=== PATIENT | female | born 1980 | race Caucasian/White ===

== ENCOUNTER 2023-11-06 14:10 | Emergency (ER) | payer OTHER, SELFPAY ==
[2023-11-06 14:12] VITALS: BP 143/99
--- NOTE | 2023-11-06 15:49 | ED.PDOC.TRB ---
ED Provider Triage
-
Patient seen by provider in Triage?: Seen in Triage
A medical screening examination has been initiated by a qualified medical provider. Based on the assessment performed at this time, it has been determined that an emergent medical condition may exist and the patient has been informed that further
medical evaluation and possible additional diagnostic testing may be needed.
This is a medical evaluation conducted in person to initiate diagnostic evaluation and provide initial therapeutics. Please see further documentation by the treating clinician.
October 05 some degree of ongoing symptoms. Diffuse pressure MILIAN. Slurring speech off/on. Vision changes for a few days intermittently. Today she had abrupt worsening of symptoms roughly 6 hours prior to arrival to the emergency department. She
claims it has very severe worsened over a few minutes. Mainly to the left side described as throbbing and aching. She had change in vision room spinning dizziness and weakness to the left arm. No meds today.
Here on examination patient does have some left-sided pronator drift. Otherwise no focality to the neurologic examination. Considering patient's multitude of symptoms plan for CT CT angiogram for further assessment pending additional assessment.
[2023-11-06] MEDS: NSS 1000 IV (16:08)
[2023-11-06] MEDS: REGLAN 10 MG IV (16:08)
[2023-11-06] MEDS: BENADRYL 25 MG IV (16:08)
[2023-11-06] MEDS: DECADRON 10 MG IV (16:09)
[2023-11-06 16:25] LABS: % Basophils 0.7 % (0-2); % Eosinophils 2.1 % (0-6); % Immature Granulocytes 0.4 % (0-0.5); % Lymphocytes 27.1 % (20.5-51.1); % Monocytes 8.5 % (1.7-9.3); % Neutrophils 61.2 % (42.2-75.2); Absolute Basophils 0.1 10^3/uL (0-0.2); Absolute Eosinophils 0.1 10^3/uL (0-0.7); Absolute Lymphocytes 1.8 10^3/uL (1.2-3.4); Absolute Monocytes 0.6 10^3/uL (0.1-0.6); Absolute Neutrophils 4.1 10^3/uL (1.4-6.5); Hemoglobin 13.7 g/dL (12.0-16.0); Mean Corp Hgb Conc. 34.3 g/dL (33.0-37.0); Mean Corpuscular Hgb 29.8 pg (27.0-31.0); Mean Platelet Volume 9.8 fL (7.4-10.4); Nucleated Red Blood Cells % 0 %; Platelet Count 261 10^3/uL (130-400); White Blood Cell Count 6.7 10^3/uL (4.8-10.8)
[2023-11-06 16:42] LABS: Erythrocyte Sed Rate 13 mm/hour (0-20)
[2023-11-06 16:49] LABS: ALT (SGPT) 38 U/L (0-35); AST (SGOT) 34 U/L (14-36); Albumin 4.7 g/dl (3.5-5.0); Alkaline Phosphatase 110 U/L (38-126); Blood Urea Nitrogen 10 mg/dl (7-17); Calcium 9.7 mg/dl (8.4-10.2); Carbon Dioxide 26 mmol/L (22-30); Chloride 104 mmol/L (98-107); Glucose 86 mg/dl (70-99); Potassium 3.9 mmol/L (3.5-5.1); Sodium 139 mmol/L (135-145); Total Bilirubin 0.6 mg/dl (0.2-1.3); Total Protein 7.6 g/dl (6.3-8.2); eGFR > 60.00
[2023-11-06 17:25] LABS: HCG, Serum Qualitative Screen Negative
[2023-11-06 17:38] VITALS: BP 138/79
[2023-11-06 18:20] VITALS: BMI 35.6
--- NOTE | 2023-11-06 20:13 | ED.GENMED ---
History of Present Illness
General
Chief Complaint: Headache
Time Seen by Provider: 11/06/23 18:38
History of Present Illness
History of Present Illness:
43-year-old female presents to the emergency department for evaluation of acute onset headache. She is a history of migraines however today symptoms feel atypical for her. She also reports speech difficulty and blurry vision that is not normal for
her. She has had frequent headaches for the past month. She did not take her sumatriptan today as scheduled. She was seen in triage and a CT angiogram of the head and neck was obtained due to the atypical nature of her symptoms
Past History
Past History
ED Past Medical History: Other (Exercise-induced asthma, bronchitis, migraines, endometriosis, chronic back pain)
ED Past Surgical History: Orthopedic
Social History
Tobacco: Non-smoker
Alcohol: None
Personal:
Living: with family
Employment: Not employed
Review of Systems
Review of Systems
Allergies reviewed?: Yes
All Other Systems: ROS reviewed and negative except as documented in HPI and ROS
Phy Exam
Physical Exam
Physical Exam:
GEN: Well appearing, NAD, WDWN
HEENT: Oral mucosa moist, no scleral icterus
Cardiac: Regular rate
Lung: No respiratory distress, no tachypnea
MSK: No gross deformity or injuries
Skin: Good color, no pallor or jaundice, no rashes
Neuro: AO x3, moves all extremities freely, cranial nerves II through XII grossly intact
Psych: Calm, cooperative
Course
Orders/Labs/Results
Orders:
Orders
11/06/23 15:50
0.9% Sodium Chloride 1000 ml [Nss] 1,000 ml IV BOLUS
Dexamethasone Sod Phosphate [Decadron] 10 mg IV NOW STA
Diphenhydramine [Benadryl] 25 mg IV NOW STA
Metoclopramide [Reglan] 10 mg IV NOW STA
11/06/23 15:55
CT Head & Neck Angio W/wo IV Urgent
Comment:
Reason For Exam: dizzy MILIAN, left arm weaskness, neck pain
11/06/23 16:03
Complete Blood Count/With Diff Urgent
Comprehensive Metabolic Panel Urgent
Erythrocyte Sed Rate Urgent
HCG, Serum Qualitative Screen Urgent
Comment: ADDON
11/06/23 16:39
Add On- LAB Urgent
Tests Added?: hcg qual
11/06/23 20:14
Ketorolac [Toradol] 30 mg IM NOW STA
11/06/23 20:15
Ketorolac [Toradol] 15 mg IV NOW STA
Abnormal Lab Results
11/06/23
16:03
ALT 38 H U/L
(0-35)
11/06/23 16:03
11/06/23 16:03
Vital Signs
Initial and Last Documented VS:
Initial Vital Signs
Temp Pulse Resp BP Pulse Ox
98.1 F 91 18 143/99 98
11/06/23 14:12 11/06/23 14:12 11/06/23 14:12 11/06/23 14:12 11/06/23 14:12
Last Documented Vital Signs
Temp Pulse Resp BP Pulse Ox
98.0 F 89 18 138/79 97
11/06/23 17:38 11/06/23 17:38 11/06/23 17:38 11/06/23 17:38 11/06/23 17:38
MDM/Problems Addressed
MDM/Problems Addressed:
On my evaluation the patient's headache is nearly resolved. CT of the head and neck shows no evidence for vascular pathology causing her symptoms. Likely atypical migraine, given IV Toradol for additional pain relief and discussed supportive care
at home
*Critical Care Note
Total Time (30-74mins, 75-104mins- exclusive of procedures): Not Applicable
ED Attending Note
-
Portions of this chart may have been created with voice recognition software.� Occasional wrong word or��sound alike� substitutions may have occurred due to the inherent limitations of voice recognition software.
Discharge Plan
Departure
Patient Disposition: Home (Routine Discharge)
Date of Disposition: 11/06/23
Time of Disposition: 20:14
Patient with high blood pressure during this ER visit?: No
Discharge Problem:
Atypical migraine
Instructions: Migraines (DC)
Prescriptions:
No Action
ondansetron 4 MG tablet,disintegrating
4 mg PO TIDPRN PRN (Reason: nausea) Qty: 10 1RF
prednisone 10 MG tablets,dose pack
10 mg PO DAILY Qty: 1 0RF
Rx Instructions:
50mg x 2 days, 40mg x 2 days, 30mg x 2 days, 20mg x 2 days, 10mg x 2 days
benzonatate 100 MG capsule
100 mg PO TIDPRN PRN (Reason: Cough) Qty: 20 0RF
Referrals:
Angelika Eduardo CRNP [Family Provider] -
Interventions
Interventions:
*Risk Screen - Suicide Last Done: 11/06/23 14:12
*General Assessment Last Done: 11/06/23 14:12
*Neglect/Abuse Screening Last Done: 11/06/23 14:12
*ED COVID-19 Vaccine History Last Done: 11/06/23 14:12
*Nursing Disposition Last Done: 11/06/23 20:29
ED- Neurological Assessment Last Done: 11/06/23 18:20
Discharge Date and Time
Discharge Date/Time: 11/06/23 20:29
Print Language: ITALIAN
[2023-11-06] MEDS: TORADOL 15 MG IV (20:17)
== END 2023-11-06 20:29 | disposition home or self-care (01) ==
LOC: EMR 14:10
PROVIDERS: Physician Assistant; EMERGENCY PHYSICIAN Student in an Organized Health Care Education/Training Program; FAMILY PHYSICIAN Nurse Practitioner Adult Health
DX: G43.009 Migraine without aura, not intractable, without status migrainosus (principal); R47.9 Unspecified speech disturbances; R42 Dizziness and giddiness; M54.2 Cervicalgia; J45.998 Other asthma; G89.29 Other chronic pain; M54.9 Dorsalgia, unspecified; Z88.8 Allergy status to other drugs, medicaments and biological substances
CPT/HCPCS: 99285; 96374; 96375 ×3; 96361; 70496; 70498; 80053; 84703; 85025; 85652; Q9967

== ENCOUNTER → 2023-11-23 17:37 | Outpatient (REF) | payer OTHER, SELFPAY | LOC: MRI 17:37 | PROVIDERS: ATTENDING PHYSICIAN Nurse Practitioner Adult Health | DX: Z15.89 Genetic susceptibility to other disease (principal); G43.009 Migraine without aura, not intractable, without status migrainosus; R68.89 Other general symptoms and signs; R47.9 Unspecified speech disturbances | CPT/HCPCS: 70544; 70553; A9575 ==

== ENCOUNTER → 2024-01-22 10:30 | Outpatient (REF) | payer OTHER, SELFPAY | LOC: HWRAD 10:30 | PROVIDERS: ATTENDING PHYSICIAN Internal Medicine | DX: J40 Bronchitis, not specified as acute or chronic (principal) | CPT/HCPCS: 71046 ==

== ENCOUNTER → 2025-03-17 09:55 | Outpatient (REF) | payer OTHER, SELFPAY | LOC: WDC 09:55 | PROVIDERS: ATTENDING PHYSICIAN Nurse Practitioner Adult Health | DX: N64.4 Mastodynia (principal); L98.8 Other specified disorders of the skin and subcutaneous tissue | CPT/HCPCS: 76642; 77062; 77066 ==